=== PATIENT | male | born 2000 | race African-American/Black ===

== ENCOUNTER 2021-02-26 10:58 | Emergency (ER) | payer SELFPAY ==
[~2021-02-26] VITALS: Ht 193 cm; Wt 104.5 kg
[2021-02-26 11:07] VITALS: BP 123/82; TEMP 98.4
[2021-02-26] MEDS ORDERED: ZOFRAN ODT4 MG PO (11:48)
[2021-02-26 13:05] VITALS: PULSE 80
== END 2021-02-26 13:07 | disposition home or self-care (01) ==
LOC: COL.ER 10:58
DX: K52.9 Noninfective gastroenteritis and colitis, unspecified (principal)
CPT/HCPCS: J1885; J2405; J2550; J7030

== ENCOUNTER 2021-10-30 08:27 | Emergency (ER) | payer SELFPAY ==
[~2021-10-30] VITALS: Ht 193 cm; Wt 111.4 kg
[~2021-10-30 08:27] MED LIST: ZOFRAN ODT4 MG PO
[2021-10-30 08:41] VITALS: TEMP 98.7
[2021-10-30 09:10] LABS: STREP SCREEN NEGATIVE
[2021-10-30] MEDS ORDERED: ZITHROMAX Z PA250 MG PO (10:31)
[2021-10-30 10:43] VITALS: BP 129/89; PULSE 67
== END 2021-10-30 10:43 | disposition home or self-care (01) ==
LOC: COL.ER 08:27
PROVIDERS: Personal Emergency Response Attendant
DX: J20.9 Acute bronchitis, unspecified (principal); Z20.822 Contact with and (suspected) exposure to COVID-19

== ENCOUNTER 2022-01-24 14:59 | Emergency (ER) | payer SELFPAY ==
[~2022-01-24] VITALS: Ht 193 cm; Wt 121.8 kg
[~2022-01-24 14:59] MED LIST changes: +ZITHROMAX Z PA250 MG PO
[2022-01-24 15:10] VITALS: TEMP 98.4
[2022-01-24 16:34] LABS: STREP SCREEN NEGATIVE
[2022-01-24 17:22] VITALS: BP 136/70; PULSE 63
== END 2022-01-24 17:22 | disposition home or self-care (01) ==
LOC: COL.ER 14:59
PROVIDERS: Nurse Practitioner Primary Care
DX: J06.9 Acute upper respiratory infection, unspecified (principal); Z20.822 Contact with and (suspected) exposure to COVID-19